=== PATIENT | male | born 1950 | race Caucasian/White ===

== ENCOUNTER → 2018-11-28 | Outpatient (CLI) | payer MEDICARE | END | disposition home or self-care (01) | LOC: LAB 08:13 | PROVIDERS: ATTEND Urology | DX: C61 Malignant neoplasm of prostate (principal) | CPT/HCPCS: 36415; 84403 ==

== ENCOUNTER → 2018-12-07 | Outpatient (CLI) | payer MEDICARE | END | disposition home or self-care (01) | LOC: PETCFH 14:28 | PROVIDERS: ATTEND Urology | DX: I71.4 Abdominal aortic aneurysm, without rupture (principal); C61 Malignant neoplasm of prostate | CPT/HCPCS: 78815; A9588 ==

== ENCOUNTER → 2020-03-13 | Outpatient (CLI) | payer MEDICARE | END | disposition home or self-care (01) | LOC: CFH 15:23 | PROVIDERS: ATTEND Internal Medicine Cardiovascular Disease | DX: I36.1 Nonrheumatic tricuspid (valve) insufficiency (principal); I11.9 Hypertensive heart disease without heart failure; I48.91 Unspecified atrial fibrillation | CPT/HCPCS: 93306 ==

== ENCOUNTER 2020-04-28 10:06 | Observation (INO) | payer MEDICARE ==
[~2020-04-28] VITALS: Ht 182.9 cm; Wt 93.0 kg
[2020-04-28] MEDS: SODIUM CHLORIDE 0.9% 1,000 ML IV SCH ×3 (10:23→23:22)
[2020-04-28] MEDS ORDERED: VANCOMYCIN PMX 1GM/200ML 200 ML IVPB SCH ×2 (10:30→23:45)
[2020-04-28 10:40] VITALS: BP 139/90
[2020-04-28] MEDS ORDERED: ASPI-496 PO (10:48)
[2020-04-28] MEDS ORDERED: ATOR10TA9 PO (10:48)
[2020-04-28] MEDS ORDERED: CHOL10003 PO (10:48)
[2020-04-28] MEDS ORDERED: TURM500C4 PO (10:48)
[2020-04-28] MEDS ORDERED: NAPR-856 PO (10:48)
[2020-04-28] MEDS ORDERED: MULT-658 PO (10:48)
[2020-04-28] MEDS ORDERED: CALC-534 PO (10:48)
[2020-04-28] MEDS ORDERED: LISI5TAB7 PO (10:48)
[2020-04-28 10:51] LABS: BASOPHILS # (AUTO) 0.03 x10^3/uL (0-0.1); BASOPHILS % (AUTO) 0 % (0-1); EOSINOPHILS # (AUTO) 0.26 x10^3/uL (0-0.4); EOSINOPHILS % (AUTO) 4 % (1-7); LYMPHOCYTES # (AUTO) 0.95 x10^3/uL (1-3.4); LYMPHOCYTES % (AUTO) 16 % (22-44); MD NO; MEAN CORPUSCULAR HEMOGLOBIN 29.8 pg (27.5-34.5); MEAN CORPUSCULAR HGB CONC 32.3 g/dL (33.2-36.2); MEAN CORPUSCULAR VOLUME 92.4 fL (81-97); MEAN PLATELET VOLUME 7.9 fL (7.4-10.4); MONOCYTES # (AUTO) 0.46 x10^3/uL (0.2-0.8); MONOCYTES % (AUTO) 8 % (2-9); NEUTROPHILS # (AUTO) 4.36 x10^3/uL (1.8-6.8); NEUTROPHILS % (AUTO) 72 % (42-75); PLATELET COUNT 167 x10^3/uL (130-400); RED BLOOD COUNT 4.87 x10^6/uL (4.38-5.82); RED CELL DISTRIBUTION WIDTH 14.8 % (9.4-14.8)
[2020-04-28 11:03] LABS: CALCIUM 9.7 mg/dL (8.5-10.1); CREATININE 1.12 mg/dL (0.7-1.3)
[2020-04-28 11:23] LABS: ANION GAP 4 mmol/L (5-15); CHLORIDE 107 mmol/L (98-107)
[2020-04-28] MEDS ORDERED: MIDAZOLAM 1 MG/ML, 5ML ONE (12:11)
[2020-04-28] MEDS ORDERED: VANCOMYCIN 500 MG ONE (12:11)
[2020-04-28] MEDS ORDERED: LIDOCAINE 2%, 20ML ONE (12:11)
[2020-04-28] MEDS ORDERED: FENTANYL PF 100 MCG/2ML ONE (12:11)
[2020-04-28] MEDS ORDERED: VANCOMYCIN PMX 1GM/200ML 200 ML ONE (12:12)
[2020-04-28 13:25] VITALS: BP 134/86
[2020-04-28] MEDS ORDERED: HOLD MEDICATION MC PRN (13:30)
[2020-04-28] MEDS ORDERED: ACETAMINOPHEN 325 MG TABLET PO PRN (13:30)
[2020-04-28] MEDS ORDERED: HYDROcodone/APAP 5/325 TABLET PO PRN (13:30)
[2020-04-28] MEDS ORDERED: ZOLPIDEM 5MG TABLET PO PRN (13:30)
[2020-04-28 13:33] VITALS: BP 134/86
[2020-04-28 20:45] VITALS: BP 145/93
[2020-04-28] MEDS: SODIUM CHLORIDE FLUSH 10ML SYR IVF SCH (20:52)
[2020-04-28] MEDS ORDERED: ATORVASTATIN 10 MG TABLET PO SCH (21:00)
[2020-04-28] MEDS ORDERED: LISINOPRIL 5 MG TABLET PO SCH (21:00)
[2020-04-29 03:00] VITALS: BP 116/77
[2020-04-29] MEDS ORDERED: MULTIVITAMIN 1 TABLET PO SCH (09:00)
[2020-04-29] MEDS ORDERED: CHOLECALCIFEROL 1,000 UNIT TABLET PO SCH (09:00)
[2020-04-29] MEDS ORDERED: LISINOPRIL 5 MG TABLET PO SCH (09:00)
[2020-04-29] MEDS ORDERED: NAPROXEN 250 MG TABLET PO SCH (09:00)
[2020-04-29] MEDS: SODIUM CHLORIDE FLUSH 10ML SYR IVF SCH (09:35)
[2020-04-29 09:55] VITALS: BP 120/79
[2020-04-29] MEDS: SODIUM CHLORIDE 0.9% 1,000 ML IV SCH (10:33)
== END 2020-04-29 12:05 | disposition home or self-care (01) ==
LOC: CACL 10:06 → 5SO 13:16 → CACL 17:19 → DCLOUNGE 04-29 11:44
PROVIDERS: ADMIT Internal Medicine Cardiovascular Disease; ATTEND Internal Medicine Cardiovascular Disease
DX: I48.0 Paroxysmal atrial fibrillation (principal); I49.5 Sick sinus syndrome; I71.4 Abdominal aortic aneurysm, without rupture; E78.2 Mixed hyperlipidemia; F17.211 Nicotine dependence, cigarettes, in remission; I10 Essential (primary) hypertension; I73.9 Peripheral vascular disease, unspecified; I45.10 Unspecified right bundle-branch block; G47.30 Sleep apnea, unspecified; Z85.46 Personal history of malignant neoplasm of prostate; Z79.899 Other long term (current) drug therapy; Z95.0 Presence of cardiac pacemaker
CPT/HCPCS: 33208; 36415; 71045; 71046; 80048; 85025; 99156; 99157; C1779; C1785; C1892; G0378; J2250; J3010; J3370; J3490